=== PATIENT | male | born 1985 | race Caucasian/White ===

== ENCOUNTER 2020-10-01 20:21 | Inpatient (IN) | payer OTHER ==
[~2020-10-01] VITALS: Ht 177.8 cm; Wt 104.0 kg
[~2020-10-01 20:21] MED LIST: ETODOLAC300 MG PO; KEFLEX500 MG PO
[2020-10-01 21:15] LABS: HEMOGLOBIN 15.5 gm/dl (14.0-17.5); RED BLOOD COUNT 4.78 M/UL (4.20-5.50)
[2020-10-01 21:18] LABS: WHITE BLOOD COUNT 40.5 K/UL (4.5-11.0)
[2020-10-01 21:32] LABS: BUN/CREATININE RATIO 10 (0-10)
[2020-10-02 00:27] LABS: HEMOGLOBIN 15.3 gm/dl (14.0-17.5); RED BLOOD COUNT 4.75 M/UL (4.20-5.50)
[2020-10-02 00:30] LABS: WHITE BLOOD COUNT 37.2 K/UL (4.5-11.0)
[2020-10-02] MEDS ORDERED: SUBOXONE 8 MG-1 EACH SL (01:17)
[2020-10-02] MEDS ORDERED: NEURONTIN300 MG PO (01:18)
[2020-10-02 02:52] LABS: HEMOGLOBIN 15.6 gm/dl (14.0-17.5); RED BLOOD COUNT 4.82 M/UL (4.20-5.50)
[2020-10-02 02:57] LABS: WHITE BLOOD COUNT 33.3 K/UL (4.5-11.0)
[2020-10-02 03:13] LABS: BUN/CREATININE RATIO 14 (0-10)
[2020-10-02 09:25] LABS: BUN/CREATININE RATIO 14 (0-10)
[2020-10-03 05:05] LABS: HEMOGLOBIN 13.7 gm/dl (14.0-17.5); RED BLOOD COUNT 4.35 M/UL (4.20-5.50); WHITE BLOOD COUNT 24.9 K/UL (4.5-11.0)
[2020-10-03 05:51] LABS: BUN/CREATININE RATIO 18 (0-10)
[2020-10-04 05:30] LABS: WHITE BLOOD COUNT 19.1 K/UL (4.5-11.0)
[2020-10-04 05:33] LABS: HEMOGLOBIN 9.9 gm/dl (14.0-17.5); RED BLOOD COUNT 3.14 M/UL (4.20-5.50)
[2020-10-04 05:58] LABS: BUN/CREATININE RATIO 26 (0-10)
[2020-10-05 04:54] LABS: HEMOGLOBIN 9.5 gm/dl (14.0-17.5); RED BLOOD COUNT 3.03 M/UL (4.20-5.50); WHITE BLOOD COUNT 15.9 K/UL (4.5-11.0)
[2020-10-05 05:16] LABS: BUN/CREATININE RATIO 33 (0-10)
[2020-10-06 04:50] LABS: HEMOGLOBIN 9.2 gm/dl (14.0-17.5); RED BLOOD COUNT 2.91 M/UL (4.20-5.50); WHITE BLOOD COUNT 12.5 K/UL (4.5-11.0)
[2020-10-06 05:18] LABS: BUN/CREATININE RATIO 26 (0-10)
[2020-10-07 04:37] LABS: HEMOGLOBIN 9.8 gm/dl (14.0-17.5); RED BLOOD COUNT 3.09 M/UL (4.20-5.50); WHITE BLOOD COUNT 14.5 K/UL (4.5-11.0)
[2020-10-07 04:56] LABS: BUN/CREATININE RATIO 25 (0-10)
[2020-10-08 05:18] LABS: HEMOGLOBIN 9.6 gm/dl (14.0-17.5); RED BLOOD COUNT 3.05 M/UL (4.20-5.50)
[2020-10-08 05:59] LABS: BUN/CREATININE RATIO 16 (0-10)
[2020-10-09 06:23] LABS: HEMOGLOBIN 8.9 gm/dl (14.0-17.5); RED BLOOD COUNT 2.83 M/UL (4.20-5.50); WHITE BLOOD COUNT 12.4 K/UL (4.5-11.0)
[2020-10-09 06:54] LABS: BUN/CREATININE RATIO 16 (0-10)
[2020-10-13] MEDS ORDERED: VALIUM 2 MG TAB2 MG PO ×2 (14:11→14:27)
[2020-10-13] MEDS ORDERED: OXYCODONE HCL5 MG PO ×2 (14:11→14:27)
== END 2020-10-13 16:15 | disposition home or self-care (01) | DRG 907 ==
LOC: ER1 20:21 → 2 EAST 22:16 → MED SURG 4 22:16 → CDU 22:16 → CCU 22:16 → 2 EAST 10-02 00:33 → CCU 10-03 09:27 → MED SURG 4 10-08 17:05
PROVIDERS: Emergency Medicine; ADMIT Surgery
PROC: 05H633Z Insertion of Infusion Device into Left Subclavian Vein, Percutaneous Approach (ICD-10-PCS; 2020-10-01)
PROC: B547ZZA Ultrasonography of Left Subclavian Vein, Guidance (ICD-10-PCS; 2020-10-01)
PROC: 04Q30ZZ Repair Hepatic Artery, Open Approach (ICD-10-PCS; principal; 2020-10-02)
PROC: 0FT40ZZ Resection of Gallbladder, Open Approach (ICD-10-PCS; principal; 2020-10-02)
PROC: 0FQ Hepatobiliary System and Pancreas, Repair (ICD-10-PCS; principal; 2020-10-02)
PROC: 0W3P0ZZ Control Bleeding in Gastrointestinal Tract, Open Approach (ICD-10-PCS; 2020-10-02)
PROC: BF5C2Z0 Other Imaging of Hepatobiliary System, All using Fluorescing Agent, Intraoperative (ICD-10-PCS; 2020-10-02)
PROC: BF10YZZ Fluoroscopy of Bile Ducts using Other Contrast (ICD-10-PCS; 2020-10-02)
PROC: 06HM33Z Insertion of Infusion Device into Right Femoral Vein, Percutaneous Approach (ICD-10-PCS; 2020-10-02)
PROC: B54BZZA Ultrasonography of Right Lower Extremity Veins, Guidance (ICD-10-PCS; 2020-10-02)
PROC: 30233N1 Transfusion of Nonautologous Red Blood Cells into Peripheral Vein, Percutaneous Approach (ICD-10-PCS; 2020-10-02)
PROC: 0HQ0XZZ Repair Scalp Skin, External Approach (ICD-10-PCS; 2020-10-02)
PROC: 0BH17EZ Insertion of Endotracheal Airway into Trachea, Via Natural or Artificial Opening (ICD-10-PCS; 2020-10-02)
PROC: 5A1935Z Respiratory Ventilation, Less than 24 Consecutive Hours (ICD-10-PCS; 2020-10-02)
PROC: 0D9670Z Drainage of Stomach with Drainage Device, Via Natural or Artificial Opening (ICD-10-PCS; 2020-10-02)
PROC: 05H633Z Insertion of Infusion Device into Left Subclavian Vein, Percutaneous Approach (ICD-10-PCS; 2020-10-02)
PROC: B547ZZA Ultrasonography of Left Subclavian Vein, Guidance (ICD-10-PCS; 2020-10-02)
PROC: 0WQF0ZZ Repair Abdominal Wall, Open Approach (ICD-10-PCS; 2020-10-03)
PROC: 3E1M38Z Irrigation of Peritoneal Cavity using Irrigating Substance, Percutaneous Approach (ICD-10-PCS; 2020-10-03)
PROC: 3E1M38Z Irrigation of Peritoneal Cavity using Irrigating Substance, Percutaneous Approach (ICD-10-PCS; 2020-10-03)
DX: S35.29 Injury of branches of celiac and mesenteric artery (principal); K65.9 Peritonitis, unspecified; S36.123A Laceration of gallbladder, initial encounter; S36.528A Contusion of other part of colon, initial encounter; S52.91XA Unspecified fracture of right forearm, initial encounter for closed fracture; S32.029A Unspecified fracture of second lumbar vertebra, initial encounter for closed fracture; S82.141A Displaced bicondylar fracture of right tibia, initial encounter for closed fracture; S36.893A Laceration of other intra-abdominal organs, initial encounter; S36.112A Contusion of liver, initial encounter; R65.10 Systemic inflammatory response syndrome (SIRS) of non-infectious origin without acute organ dysfunction; D62 Acute posthemorrhagic anemia; K56.7 Ileus, unspecified; S36.13XA Injury of bile duct, initial encounter; K76.89 Other specified diseases of liver; Z20.822 Contact with and (suspected) exposure to COVID-19; S31.109A Unspecified open wound of abdominal wall, unspecified quadrant without penetration into peritoneal cavity, initial encounter; F17.210 Nicotine dependence, cigarettes, uncomplicated; M41.9 Scoliosis, unspecified; V09.20XA Pedestrian injured in traffic accident involving unspecified motor vehicles, initial encounter; Y92.410 Unspecified street and highway as the place of occurrence of the external cause; Y93.89 Activity, other specified; Z88.0 Allergy status to penicillin; S01.01XA Laceration without foreign body of scalp, initial encounter; Z78.1 Physical restraint status
CPT/HCPCS: 36415; 36430; 36556; 70496; 70498; 71045; 71275; 72125; 72128; 72131; 72148; 72170; 73060; 73080; 73090; 73100; 73552; 73590; 73600; 74018; 80053; 82803; 83605; 83735; 85025; 85027; 85610; 85730; 86850; 86900; 86901; 86920; 86922; 87635; 93005; 94002; 94003; 94640; 94664; 94760; 96365; 96368; 96375; 97116; 97116-GP-CQ; 97163; 97166; 97530; 97530-GP-CQ; 97535; 99291; G0480; J0131; J0692; J1100; J1170; J1650; J2001; J2270; J2370; J2405; J2704; J2710; J3010; J7030; J7120; P9016; Q9962; Q9967

== ENCOUNTER 2020-12-10 02:47 | Emergency (ER) | payer OTHER ==
[~2020-12-10 02:47] MED LIST changes: +NEURONTIN300 MG PO; +OXYCODONE HCL5 MG PO; +SUBOXONE 8 MG-1 EACH SL; +VALIUM 2 MG TAB2 MG PO
[2020-12-10 03:33] LABS: HEMOGLOBIN 15.1 gm/dl (14.0-17.5); RED BLOOD COUNT 5.05 M/UL (4.20-5.50); WHITE BLOOD COUNT 14.7 K/UL (4.5-11.0)
[2020-12-10 04:12] LABS: BUN/CREATININE RATIO 7 (0-10)
== END 2020-12-10 06:14 | disposition home or self-care (01) ==
LOC: ER1 02:47
PROVIDERS: Internal Medicine
DX: R10.84 Generalized abdominal pain (principal); R10.30 Lower abdominal pain, unspecified; F15.10 Other stimulant abuse, uncomplicated; F11.10 Opioid abuse, uncomplicated; F13.10 Sedative, hypnotic or anxiolytic abuse, uncomplicated; F17.210 Nicotine dependence, cigarettes, uncomplicated
CPT/HCPCS: 80053; 80307; 81001; 83605; 85025; 85610; 85730; 86140; 87040; 96374; 96375; 99284; J1885; J2405; J3010; Q9967

== ENCOUNTER 2020-12-22 15:04 | Emergency (ER) | payer OTHER ==
[2020-12-22 16:48] LABS: HEMOGLOBIN 15.6 gm/dl (14.0-17.5); RED BLOOD COUNT 5.2 M/UL (4.20-5.50); WHITE BLOOD COUNT 21.1 K/UL (4.5-11.0)
[2020-12-22 17:03] LABS: BUN/CREATININE RATIO 18 (0-10)
== END 2020-12-22 17:40 | disposition short-term general hospital (02) ==
LOC: ER1 15:04
PROVIDERS: Emergency Medicine
DX: H44.002 Unspecified purulent endophthalmitis, left eye (principal); H05.012 Cellulitis of left orbit
CPT/HCPCS: 70481; 71045; 80053; 83605; 83690; 83735; 84100; 85025; 87040; 96374; 96375; 99285; J0696; J1170; J1885; J2405; J3370; Q9967

== ENCOUNTER → 2021-01-16 | Outpatient (CLI) | payer OTHER | LOC: LAB 18:13 | DX: H44.009 Unspecified purulent endophthalmitis, unspecified eye (principal); Z20.822 Contact with and (suspected) exposure to COVID-19 | CPT/HCPCS: U0003 ==

== ENCOUNTER 2021-07-19 22:10 | Emergency (ER) | payer OTHER ==
[2021-07-19 23:33] LABS: HEMOGLOBIN 15.7 gm/dl (14.0-17.5); RED BLOOD COUNT 4.76 M/UL (4.20-5.50); WHITE BLOOD COUNT 10.2 K/UL (4.5-11.0)
[2021-07-19 23:35] LABS: BUN/CREATININE RATIO 16 (0-10)
== END 2021-07-20 03:10 | disposition home or self-care (01) ==
LOC: ER1 22:10
PROVIDERS: Physician Assistant
DX: R07.9 Chest pain, unspecified (principal); R06.02 Shortness of breath; I10 Essential (primary) hypertension; F17.210 Nicotine dependence, cigarettes, uncomplicated; Z88.0 Allergy status to penicillin; Z88.8 Allergy status to other drugs, medicaments and biological substances; Z20.822 Contact with and (suspected) exposure to COVID-19
CPT/HCPCS: 0240U; 71045; 80053; 80307; 81001; 82550; 82553; 83874; 83880; 84484; 85025; 85379; 85610; 85730; 87086; 93005; 99285

== ENCOUNTER 2021-08-26 02:22 | Emergency (ER) | payer OTHER ==
[2021-08-26 03:04] LABS: HEMOGLOBIN 16.5 gm/dl (14.0-17.5); RED BLOOD COUNT 5.16 M/UL (4.20-5.50); WHITE BLOOD COUNT 9.9 K/UL (4.5-11.0)
[2021-08-26 04:18] LABS: BUN/CREATININE RATIO 16 (0-10)
== END 2021-08-26 05:00 | disposition home or self-care (01) ==
LOC: ER1 02:22
PROVIDERS: Family Medicine
DX: R07.89 Other chest pain (principal); F41.9 Anxiety disorder, unspecified; Z88.0 Allergy status to penicillin; F17.200 Nicotine dependence, unspecified, uncomplicated; F11.20 Opioid dependence, uncomplicated
CPT/HCPCS: 71045; 80048; 82550; 82553; 83874; 84484; 85025; 93005; 99285

== ENCOUNTER 2021-09-08 21:30 | Emergency (ER) | payer OTHER ==
[2021-09-08 22:09] LABS: HEMOGLOBIN 16.2 gm/dl (14.0-17.5); RED BLOOD COUNT 4.91 M/UL (4.20-5.50); WHITE BLOOD COUNT 11.2 K/UL (4.5-11.0)
[2021-09-08 22:45] LABS: BUN/CREATININE RATIO 16 (0-10)
== END 2021-09-09 03:23 | disposition home or self-care (01) ==
LOC: ER1 21:30
PROVIDERS: Emergency Medicine
DX: R07.89 Other chest pain (principal); I10 Essential (primary) hypertension; F17.210 Nicotine dependence, cigarettes, uncomplicated
CPT/HCPCS: 71045; 80053; 82550; 82553; 83874; 84484; 85025; 93005; 99285

== ENCOUNTER 2021-10-17 23:20 | Emergency (ER) | payer OTHER ==
[2021-10-18 00:27] LABS: HEMOGLOBIN 15.4 gm/dl (14.0-17.5); RED BLOOD COUNT 4.81 M/UL (4.20-5.50); WHITE BLOOD COUNT 11.5 K/UL (4.5-11.0)
[2021-10-18 02:38] LABS: BUN/CREATININE RATIO 13 (0-10)
[2021-10-18] MEDS ORDERED: VISTARIL 50 MG50 MG PO (04:18)
== END 2021-10-18 04:23 | disposition home or self-care (01) ==
LOC: ER1 23:20
PROVIDERS: Physician Assistant
DX: R07.89 Other chest pain (principal); R51.9 Headache, unspecified; R63.5 Abnormal weight gain; I10 Essential (primary) hypertension; F17.200 Nicotine dependence, unspecified, uncomplicated; Z88.5 Allergy status to narcotic agent; Z88.0 Allergy status to penicillin; Z88.8 Allergy status to other drugs, medicaments and biological substances; Z79.899 Other long term (current) drug therapy
CPT/HCPCS: 71045; 80053; 82550; 82553; 83690; 84439; 84443; 84484; 85025; 85379; 93005; 96374; 99285

== ENCOUNTER 2021-10-21 01:03 | Emergency (ER) | payer OTHER ==
[~2021-10-21 01:03] MED LIST changes: +VISTARIL 50 MG50 MG PO
[2021-10-21 02:39] LABS: HEMOGLOBIN 16.2 gm/dl (14.0-17.5); RED BLOOD COUNT 5.11 M/UL (4.20-5.50); WHITE BLOOD COUNT 8.2 K/UL (4.5-11.0)
[2021-10-21 03:05] LABS: BUN/CREATININE RATIO 12 (0-10)
[2021-10-21] MEDS ORDERED: ZOFRAN ODT 4 MG4 MG PO (05:58)
[2021-10-21] MEDS ORDERED: IBUPROFEN600 MG PO (05:58)
[2021-10-21] MEDS ORDERED: BENTYL 20MG TAB20 MG PO (05:58)
== END 2021-10-21 06:35 | disposition home or self-care (01) ==
LOC: ER1 01:03
PROVIDERS: Physician Assistant
DX: R10.811 Right upper quadrant abdominal tenderness (principal); R10.812 Left upper quadrant abdominal tenderness; Z20.822 Contact with and (suspected) exposure to COVID-19; I10 Essential (primary) hypertension; F17.210 Nicotine dependence, cigarettes, uncomplicated; Z88.0 Allergy status to penicillin; Z88.1 Allergy status to other antibiotic agents; Z88.8 Allergy status to other drugs, medicaments and biological substances; Z88.5 Allergy status to narcotic agent; Z88.6 Allergy status to analgesic agent
CPT/HCPCS: 0240U; 71045; 80053; 81001; 82150; 82550; 82553; 83605; 83690; 84484; 85025; 85610; 93005; 96374; 99284; J1885; J2405; J7030; Q9967

== ENCOUNTER → 2021-12-11 | Outpatient (CLI) | payer OTHER ==
[~2021-12-11] MED LIST changes: +BENTYL 20MG TAB20 MG PO; +CHRONULAC20 GM/30 M PO; +IBUPROFEN600 MG PO; +ZOFRAN ODT 4 MG4 MG PO
== END ==
LOC: HEART 5 12-10 07:30
DX: R07.9 Chest pain, unspecified (principal)
CPT/HCPCS: 78452; A9502

== ENCOUNTER 2021-12-18 01:08 | Emergency (ER) | payer OTHER ==
[~2021-12-18 01:08] MED LIST changes: -CHRONULAC20 GM/30 M PO
[2021-12-18 02:36] LABS: HEMOGLOBIN 15.9 gm/dl (14.0-17.5); RED BLOOD COUNT 4.85 M/UL (4.20-5.50); WHITE BLOOD COUNT 10.1 K/UL (4.5-11.0)
[2021-12-18 02:57] LABS: BUN/CREATININE RATIO 18 (0-10)
[2021-12-18] MEDS ORDERED: CHRONULAC20 GM/30 M PO (05:43)
== END 2021-12-18 05:52 | disposition home or self-care (01) ==
LOC: ER1 01:08
PROVIDERS: Student in an Organized Health Care Education/Training Program
DX: R07.81 Pleurodynia (principal); K59.00 Constipation, unspecified; F17.210 Nicotine dependence, cigarettes, uncomplicated; Z88.0 Allergy status to penicillin; Z88.5 Allergy status to narcotic agent; Z88.8 Allergy status to other drugs, medicaments and biological substances
CPT/HCPCS: 71046; 80053; 81001; 82550; 82553; 83690; 84484; 85025; 99285; Q9967

== ENCOUNTER → 2022-02-27 | Outpatient (CLI) | payer OTHER ==
[~2022-02-27] MED LIST changes: +CHRONULAC20 GM/30 M PO
== END ==
LOC: HEART 5 14:04
DX: R06.02 Shortness of breath (principal)
CPT/HCPCS: 94010

== ENCOUNTER 2022-03-06 20:20 | Emergency (ER) | payer OTHER | END 2022-03-07 02:30 | disposition home or self-care (01) | LOC: ER1 20:20 | DX: R51.9 Headache, unspecified (principal); F17.210 Nicotine dependence, cigarettes, uncomplicated; I10 Essential (primary) hypertension | CPT/HCPCS: 70450; 99284 ==

== ENCOUNTER 2022-04-21 12:10 | Emergency (ER) | payer OTHER | END 2022-04-21 13:42 | disposition left against medical advice (07) | LOC: ER1 12:10 | DX: R10.9 Unspecified abdominal pain (principal); M79.602 Pain in left arm; I10 Essential (primary) hypertension; F17.210 Nicotine dependence, cigarettes, uncomplicated; Z88.0 Allergy status to penicillin; Z88.5 Allergy status to narcotic agent | CPT/HCPCS: 99281 ==

== ENCOUNTER 2022-04-22 20:40 | Emergency (ER) | payer OTHER ==
[2022-04-22 21:18] LABS: HEMOGLOBIN 16.4 gm/dl (14.0-17.5); RED BLOOD COUNT 4.93 M/UL (4.20-5.50); WHITE BLOOD COUNT 14.1 K/UL (4.5-11.0)
[2022-04-22 22:27] LABS: BUN/CREATININE RATIO 14 (0-10)
[2022-04-23] MEDS ORDERED: DOXYCYCLINE HY100 MG PO (02:10)
== END 2022-04-23 02:49 | disposition home or self-care (01) ==
LOC: ER1 20:40
PROVIDERS: Physician Assistant
DX: I80.8 Phlebitis and thrombophlebitis of other sites (principal); F17.200 Nicotine dependence, unspecified, uncomplicated; Z86.19 Personal history of other infectious and parasitic diseases
CPT/HCPCS: 80053; 80307; 85025; 86140; 99283